=== PATIENT | female | born 1970 | race Caucasian/White ===

== ENCOUNTER 2022-05-24 12:58 | Emergency (ER) | payer MEDICARE ==
[~2022-05-24] VITALS: Ht 149.9 cm; Wt 68.0 kg
== END 2022-05-24 13:51 | disposition home or self-care (01) ==
LOC: ER 13:10
DX: H92.01 Otalgia, right ear (principal); H61.23 Impacted cerumen, bilateral; Z96.642 Presence of left artificial hip joint
CPT/HCPCS: 99282

== ENCOUNTER 2025-01-27 19:04 | Emergency (ER) | payer MEDICARE ==
[~2025-01-27] VITALS: Ht 149.9 cm; Wt 59.9 kg
[2025-01-27 19:40] VITALS: TEMP 97.9
[2025-01-27 21:40] VITALS: PULSE 64; RESP 16
[2025-01-27 22:24] VITALS: BP 138/89; PULSE 72; RESP 18; O2SAT 96
== END 2025-01-27 22:25 | disposition home or self-care (01) ==
LOC: ER 19:53
DX: M25.512 Pain in left shoulder (principal); M25.511 Pain in right shoulder; R07.89 Other chest pain; S46.812A Strain of other muscles, fascia and tendons at shoulder and upper arm level, left arm, initial encounter; S46.811A Strain of other muscles, fascia and tendons at shoulder and upper arm level, right arm, initial encounter; W22.8XXA Striking against or struck by other objects, initial encounter; Y93.01 Activity, walking, marching and hiking; Y92.512 Supermarket, store or market as the place of occurrence of the external cause; Z85.72 Personal history of non-Hodgkin lymphomas
CPT/HCPCS: 71046; 99283